=== PATIENT | female | born 1975 | race Caucasian/White ===

== ENCOUNTER 2023-02-03 08:46 | Emergency (ER) | payer MEDICAID, SELFPAY ==
[2023-02-03 08:49] VITALS: BP 137/91; PULSE 93; RESP 16; TEMP 36.8; O2SAT 95; BMI 34.8
--- NOTE | 2023-02-03 08:56 | CRLHL7_ITS ---
For Patients: As a result of the Century Cures Act, medical imaging exams and procedure reports are released immediately into your electronic medical record. You may view this report before your referring provider. If you have questions, please contact your health care provider. Indication: Injury and pain Technique: Right wrist 3 view Comparison: None Findings: Bones: No evidence of fracture. Ossicle adjacent to the ulnar styloid. Joint spaces: Unremarkable. Soft tissues: Mild soft tissue swelling. Impression: Mild soft tissue swelling without evidence of fracture. Dictated by Isaac Smith MD @ 02/03/2023 9:32:00 AM (Electronically Signed)
--- NOTE | 2023-02-03 08:57 | ED_ITS ---
HPI - Extremity Injury (Upper) General Chief Complaint: Extremity Pain/Injury, Upper Stated Complaint: r. wrist injury Time Seen by Provider: 02/03/23 08:57 History of Present Illness HPI narrative: Patient is a 47-year-old healthy woman who stepped on the running board on her vehicle today and felt a snap. The running board broken patient fell to the ground landing on her right hand and wrist. Patient has pain over the distal ulnar aspect of the right wrist. The event occurred immediately prior to coming in. Patient has no other injuries. Patient's pain as moderate. There is no skin breakdown swelling or ecchymoses. Patient is neuromuscularly intact with no other major complaints or concerns. Related Data Home Medications Medication Instructions Recorded Confirmed albuterol sulfate 90 mcg/actuation 2 puff inhalation Q4H PRN wheezing 02/03/23 02/03/23 aerosol inhaler (Ventolin HFA) amlodipine 5 mg tablet 5 mg PO DAILY 02/03/23 02/03/23 fluticasone propionate 100 1 inh inhalation BID 02/03/23 02/03/23 mcg/actuation blister powder for inhalation (Flovent Diskus) levothyroxine 175 mcg tablet 175 mcg PO DIRECTED 02/03/23 02/03/23 levothyroxine 200 mcg tablet 200 mcg PO 02/03/23 liothyronine 5 mcg tablet 5 mcg PO BID 02/03/23 02/03/23 omeprazole 20 mg capsule,delayed 20 mg PO DAILY 02/03/23 02/03/23 release salmeterol 50 mcg/dose blister 1 inh inhalation BID 02/03/23 02/03/23 powder for inhalation (Serevent Diskus) spironolactone 50 mg tablet mg PO 02/03/23 tolterodine 2 mg capsule,extended 2 mg PO DAILY 02/03/23 02/03/23 release 24 hr valacyclovir 500 mg tablet 500 mg PO DAILY 02/03/23 02/03/23 Allergies Allergy/AdvReac Type Severity Reaction Status Date / Time meperidine [From Demerol] Allergy Intermediate Verified 02/03/23 08:54 Review of Systems Status of ROS: Reports: 10 or more systems reviewed and unremarkable except as noted in History and below PFSH PFSH Social History Smoking Status: Never smoker How often do you have a drink containing alcohol: 4 or more times a week AUDIT-C Alcohol total score: 4 Non-prescribed substance use: denies use Exam Narrative: Exam Narrative: EXAM GENERAL: Patient appears comfortable and well. EYES: No scleral icterus. ENT: Tympanic membranes and oropharynx normal. THYROID: no thyroid nodules or thyromegaly. LYMPH: No supraclavicular or cervical lymphadenopathy. SKIN: Visible skin seen during exam normal or with benign process only. EXT: No swelling but pain to palpation distal right wrist in the ulnar aspect. Mild tenderness to palpation limited range of motion noted. HEART: Regular rate and rhythm with no murmurs, rubs, or gallops. LUNGS: Clear to auscultation bilaterally with no crackles or wheezes. ABD: Soft, non tender, non distended. PSYCH: Good eye contact, speech is not pressured. Const: Vital Signs, click to edit/add: Vital Signs - 24 hr 02/03/23 08:49 Temperature 98.2 F Pulse Rate [Pulse Oximeter] 93 Respiratory Rate 16 Blood Pressure [Le ft Upper Arm] 137/91 H Pulse Oximetry 95 Oxygen Delivery Me thod Room Air Course Course Hospital Course: Patient seen examined. X-ray of the right wrist ordered. Reevaluation(s) Reevaluation #1: Patient in a splint. X-ray series shows no fracture. Time: 09:38 Vital Signs Vital signs: Initial Vital Signs Temperature 98.2 F 02/03/23 08:49 Temperature Source Temporal Artery Scan 02/03/23 08:49 Pulse Rate 93 02/03/23 08:49 Respiratory Rate 16 02/03/23 08:49 Blood Pressure 137/91 H 02/03/23 08:49 Blood Pressure Mean 106 02/03/23 08:49 Blood Pressure Position Supine 02/03/23 08:49 Pulse Oximetry 95 02/03/23 08:49 Oxygen Delivery Method Room Air 02/03/23 08:49 Vital Signs Temperature 98.2 F 02/03/23 08:49 Pulse Rate 93 02/03/23 08:49 Respiratory Rate 16 02/03/23 08:49 Blood Pressure 137/91 H 02/03/23 08:49 Pulse Oximetry 95 02/03/23 08:49 Oxygen Delivery Method Room Air 02/03/23 08:49 Temperature 98.2 F 02/03/23 08:49 Pulse Rate 93 02/03/23 08:49 Respiratory Rate 16 02/03/23 08:49 Blood Pressure 137/91 H 02/03/23 08:49 Pulse Oximetry 95 02/03/23 08:49 Oxygen Delivery Method Room Air 02/03/23 08:49 MDM - Extremity Injury (Upper) MDM Narrative Medical decision making narrative: Patient is a 47-year-old woman who fell and injured her right wrist. Wrist is fairly normal and inspection with a mildly reduced range of motion no other acute abnormalities. X-ray series is unremarkable. Patient will be treated with Tylenol Motrin ice and a splint and follow-up as needed with her primary physician. Differential Diagnosis Differential diagnosis: Likely sprain and strain of wrist, fracture of wrist, finger sprain and fracture of hand Discharge Plan Discharge Clinical Impression: Sprain and strain of wrist Patient Disposition: Home, Self-Care Condition: Stable Instructions: Wrist Sprain (ED) Additional Instructions: Tylenol Motrin Splint as needed Ice Activity Level: No Restrictions Discharge Diet: Regular Prescriptions: No Action tolterodine 2 mg capsule,extended release 24hr 2 mg PO DAILY levothyroxine 175 mcg tablet 175 mcg PO DIRECTED amlodipine 5 mg tablet 5 mg PO DAILY valacyclovir 500 mg tablet 500 mg PO DAILY liothyronine 5 mcg tablet 5 mcg PO BID Flovent Diskus 100 mcg/actuation blister with device 1 inh INHALATION BID Serevent Diskus 50 mcg/dose blister with device 1 inh INHALATION BID omeprazole 20 mg capsule,delayed release(DR/EC) 20 mg PO DAILY levothyroxine 200 mcg tablet 200 mcg PO albuterol sulfate [Ventolin HFA] 90 mcg/actuation HFA aerosol inhaler 2 puff INHALATION Q4H PRN (Reason: wheezing) spironolactone 50 mg tablet PO Stand Alone Forms: [email or web address] Info Instructions
== END 2023-02-03 09:55 | disposition home or self-care (01) ==
PROVIDERS: Emergency Provider Internal Medicine; PCP Physician Assistant
DX: S63.501A Unspecified sprain of right wrist, initial encounter (principal); W01.0XXA Fall on same level from slipping, tripping and stumbling without subsequent striking against object, initial encounter
CPT/HCPCS: 29125; 73110; 99283